=== PATIENT | male | born 1995 | race Hispanic/Latino ===

== ENCOUNTER 2022-11-10 13:41 | Emergency (ER) | payer SELFPAY ==
[~2022-11-10] VITALS: Ht 167.6 cm; Wt 95.3 kg
[2022-11-10] MEDS ORDERED: NAPROSYN500 MG PO (15:29)
[2022-11-10] MEDS ORDERED: PREDNISONE20 MG PO (15:30)
[2022-11-10] MEDS ORDERED: METHOCARBAMOL500 MG MT (15:31)
== END 2022-11-10 15:53 | disposition home or self-care (01) ==
LOC: ER 14:12
DX: S39.012A Strain of muscle, fascia and tendon of lower back, initial encounter (principal)
CPT/HCPCS: 99282